=== PATIENT | male | born 1980 | race Caucasian/White ===

== ENCOUNTER 2024-04-14 11:14 | Day surgery (SDC) | payer OTHER ==
[2024-04-14 12:54] LABS: INR 1.08 (0.83-1.09); PROTHROMBIN TIME (PATIENT) 12.2 SEC (9.7-13.0)
[2024-04-14 12:57] LABS: ACTIVATED PTT 29.2 SECONDS (25.2-36.5)
[2024-04-14 12:58] LABS: BASO % 0.3 % (0-2.0); EOS % 0.3 % (0-4.5); HEMATOCRIT 40.4 % (35.4-49); HEMOGLOBIN 13.7 GM/dL (11.7-16.9); LYMPH % 15.6 % (8-40); MCH 29.7 pg (25.7-33.7); MCHC 33.8 g/dl (32.0-35.9); MEAN CELL VOLUME 87.8 fl (80-96); MEAN PLT VOLUME 9.3 fl (7.5-11.1); MONO % 10.1 % (3.8-10.2); NEUT % 73.7 % (42.8-82.8); PLATELET COUNT 235 10^3/uL (134-434); RDW 12.7 % (11.9-15.9); WHITE BLOOD COUNT 12.8 K/mm3 (4.0-10.0)
[2024-04-14 13:07] LABS: CALCIUM 9.2 mg/dL (8.5-10.1)
[2024-04-14 13:09] LABS: ALBUMIN 4.1 g/dl (3.4-5.0); BLOOD UREA NITROGEN 13.3 mg/dL (7-18)
[2024-04-14 13:12] LABS: CREATININE 1.3 mg/dL (0.55-1.3)
[2024-04-14 13:13] LABS: BILIRUBIN,TOTAL 2.3 mg/dL (0.2-1); TOT PROT 7.3 g/dl (6.4-8.2)
[2024-04-14 13:49] LABS: URINE APPEARANCE Clear; URINE BILIRUBIN Negative (NEGATIVE); URINE COLOR Yellow; URINE GLUCOSE (UA) Negative (NEGATIVE); URINE KETONE Negative (NEGATIVE); URINE LEUK ESTERASE 1+ (NEGATIVE); URINE NITRITE Negative (NEGATIVE); URINE PROTEIN Negative (NEGATIVE); URINE UROBILINOGEN 0.2 mg/dL (0.2-1.0)
[2024-04-14] MEDS ORDERED: ACETAMINOPHEN 500 MG TABLET (FP) PO PRN (13:49)
[2024-04-14 13:59] LABS: EPI CELLS 6 /uL (0-25.1); HYALINE CASTS 0.1 /uL (0-3.1); URINE BACTERIA 3 /uL (0-1359); URINE RBC 25 /uL (0-23.9); URINE WBC 24 /uL (0-25.8)
[2024-04-14] MEDS ORDERED: KETOROLAC TROMETHAMINE 15 MG/ML VIAL ONE (13:59)
[2024-04-14] MEDS: KETOROLAC TROMETHAMINE 15 MG/ML VIAL IVPUSH ONE (14:07)
[2024-04-14] MEDS: LACTATED RINGERS SOLUTION 1,000 ML/1,000 ML INFUS.BAG IV SCH (14:30)
[2024-04-14] MEDS ORDERED: ONDANSETRON 4 MG/2 ML VIAL IVPUSH PRN (17:18)
[2024-04-14 17:49] VITALS: RESP 18; BMI 29.0
[2024-04-14] MEDS: KETOROLAC TROMETHAMINE 15 MG/ML VIAL IVPUSH PRN (21:35)
[2024-04-15] MEDS ORDERED: PROPOFOL 40 ML ONE (07:20)
[2024-04-15] MEDS ORDERED: FENTANYL CITRATE/PF 50 MCG/ML VIAL ONE (07:20)
[2024-04-15] MEDS ORDERED: MIDAZOLAM HCL 2 MG/2 ML SINGLE DOSE VIAL ONE (07:22)
[2024-04-15] MEDS ORDERED: SUCCINYLCHOLINE CHLORIDE 200 MG/10 ML SYRINGE ONE (07:22)
[2024-04-15] MEDS ORDERED: ceFAZolin SODIUM 1 GM VIAL ONE ×2 (07:36→07:38)
[2024-04-15] MEDS ORDERED: SODIUM CHLORIDE 0.9% P/F 10 ML VIAL IJ ONE (07:38)
[2024-04-15] MEDS ORDERED: LIDOCAINE HCL/PF 2% SDV 5ML VIAL ONE ×2 (07:38→08:08)
[2024-04-15] MEDS ORDERED: GENTAMICIN SO4 80 MG/2 ML VIAL ONE (07:38)
[2024-04-15] MEDS ORDERED: DEXAMETHASONE SOD PHOSPHATE 4 MG/1 ML VIAL ONE (07:49)
[2024-04-15] MEDS ORDERED: KETOROLAC TROMETHAMINE 30 MG/1 ML VIAL ONE (07:49)
[2024-04-15] MEDS ORDERED: ONDANSETRON 4 MG/2 ML VIAL ONE ×2 (07:49→08:09)
[2024-04-15] MEDS: IOHEXOL 300 MG/ML INFUS..BTL IV ONE (07:52)
[2024-04-15] MEDS ORDERED: ACETAMINOPHEN 500 MG TABLET (FP) PO PRN (07:59)
[2024-04-15] MEDS ORDERED: ONDANSETRON 4 MG/2 ML VIAL IVPUSH PRN ×2 (07:59→08:13)
[2024-04-15] MEDS ORDERED: KETOROLAC TROMETHAMINE 15 MG/ML VIAL IVPUSH PRN (07:59)
[2024-04-15] MEDS ORDERED: LACTATED RINGERS SOLUTION 1,000 ML IV SCH (08:15)
[2024-04-15 09:12] VITALS: PULSE 63
[2024-04-15 09:24] VITALS: BP 117/71; TEMP 99.5
[2024-04-15 10:36] LABS: BASO % 0.4 % (0-2.0); EOS % 1.4 % (0-4.5); HEMATOCRIT 38.7 % (35.4-49); MCH 29.7 pg (25.7-33.7); MCHC 33.6 g/dl (32.0-35.9); MEAN CELL VOLUME 88.4 fl (80-96); MEAN PLT VOLUME 9.6 fl (7.5-11.1); MONO % 6.6 % (3.8-10.2); NEUT % 67.6 % (42.8-82.8); PLATELET COUNT 207 10^3/uL (134-434); RBC 4.37 M/mm3 (4.00-5.60); RDW 12.5 % (11.9-15.9); WHITE BLOOD COUNT 9.7 K/mm3 (4.0-10.0)
[2024-04-15 10:57] LABS: POTASSIUM 3.9 mmol/L (3.5-5.1)
[2024-04-15 10:59] LABS: CALCIUM 8.4 mg/dL (8.5-10.1)
[2024-04-15 11:01] LABS: BLOOD UREA NITROGEN 13.4 mg/dL (7-18)
[2024-04-15 11:03] LABS: CREATININE 0.9 mg/dL (0.55-1.3)
== END 2024-04-15 11:04 | disposition home or self-care (01) ==
LOC: JER 11:14 → JERBED 12:24 → INTOOBSV 12:24 → UNDOADMOB 12:24 → JERBED 13:48 → J7W 17:00 → JASUSAT 04-15 10:21 → J7W 04-15 11:00 → JASUSAT 04-15 11:04
PROVIDERS: ATTEND Internal Medicine
PROC: 3E0333Z Introduction of Anti-inflammatory into Peripheral Vein, Percutaneous Approach (ICD-10-PCS; 2024-04-15)
PROC: 3E0333Z Introduction of Anti-inflammatory into Peripheral Vein, Percutaneous Approach (ICD-10-PCS; 2024-04-15)
PROC: 3E033GC Introduction of Other Therapeutic Substance into Peripheral Vein, Percutaneous Approach (ICD-10-PCS; principal; 2024-04-15 07:30)
DX: N20.0 Calculus of kidney (principal); R10.30 Lower abdominal pain, unspecified; R11.10 Vomiting, unspecified; Z20.822 Contact with and (suspected) exposure to COVID-19
CPT/HCPCS: 0241U-QW; 36415; 74176-TC; 76000-TC-FY; 80048; 80053; 81003; 85025; 85610; 85730; 86850; 86900; 86901; 87086; 93005; 93010; 94760; 99285-25; C2617